=== PATIENT | female | born 1995 | race Two or more races ===

== ENCOUNTER 2017-09-10 13:59 | Inpatient (IN) | payer MEDICAID, OTHER ==
[~2017-09-10] VITALS: Ht 162.6 cm; Wt 78.9 kg
[2017-09-10] MEDS ORDERED: SODIUM CHLORIDE 0.9% 1,000ML IVBOLUS ONE (15:00)
[2017-09-10] MEDS ORDERED: SODIUM CHLORIDE FLUSH 10ML SYR IVF ONE (15:00)
[2017-09-10] MEDS ORDERED: ONDANSETRON 2MG/ML, 2ML IVPush ONE (15:00)
[2017-09-10 15:08] LABS: MEAN CORPUSCULAR HEMOGLOBIN 30.9 pg (27.0-34.8); MEAN CORPUSCULAR HGB CONC 33.8 g/dL (32.4-35.8); MEAN CORPUSCULAR VOLUME 91.4 fL (80-100); MEAN PLATELET VOLUME 9.6 fL (7.4-10.4); PLATELET COUNT 265 x10^3/uL (130-400); RED BLOOD COUNT 5.36 x10^6/uL (3.82-5.3); RED CELL DISTRIBUTION WIDTH 13.1 % (9.6-15.2)
[2017-09-10 15:19] LABS: ALBUMIN 3.9 g/dL (3.4-5.0); ANION GAP 14 mmol/L (5-15); CALCIUM 9.4 mg/dL (8.5-10.1); CHLORIDE 89 mmol/L (98-107)
[2017-09-10 15:40] LABS: ALANINE AMINOTRANSFERASE 264 U/L (12-78); ALKALINE PHOSPHATASE 135 U/L (45-117); BILIRUBIN,TOTAL 1.6 mg/dL (0.2-1.0); CREATININE 0.87 mg/dL (0.55-1.02); TOTAL PROTEIN 8.3 g/dL (6.4-8.2)
[2017-09-10] MEDS ORDERED: PYRI50TA5 PO (15:51)
[2017-09-10] MEDS ORDERED: PROM12.55 PO (15:51)
[2017-09-10] MEDS ORDERED: ONDA4TAB10 PO (15:51)
[2017-09-10] MEDS ORDERED: ONDANSETRON 2MG/ML, 2ML ONE ×2 (15:54→16:03)
[2017-09-10 15:55] LABS: BASOPHILS # (AUTO) 0.07 x10^3/uL (0-0.1); BASOPHILS % (AUTO) 0 % (0-1); EOSINOPHILS # (AUTO) 0.07 x10^3/uL (0-0.4); EOSINOPHILS % (AUTO) 0 % (1-7); LYMPHOCYTES # (AUTO) 2.08 x10^3/uL (1-3.4); LYMPHOCYTES % (AUTO) 11 % (22-44); MD SCAN; MONOCYTES # (AUTO) 1.55 x10^3/uL (0.2-0.8); MONOCYTES % (AUTO) 8 % (2-9); NEUTROPHILS # (AUTO) 14.94 x10^3/uL (1.8-6.8); NEUTROPHILS % (AUTO) 80 % (42-75)
[2017-09-10] MEDS ORDERED: POTASSIUM CHLORIDE 40 MEQ in SODIUM CHLORIDE 0.9% 500 ML IV ONE (17:00)
[2017-09-10 17:11] LABS: CULTURE INDICATED? YES; MICROSCOPIC INDICATED
[2017-09-10] MEDS ORDERED: NS + 40MEQ KCL 1,000 ML IV ONE (17:50)
[2017-09-10] MEDS ORDERED: POTASSIUM CHLORIDE 20 MEQ in SODIUM CHLORIDE 0.9% 1,000 ML IV ONE (18:22)
[2017-09-10] MEDS ORDERED: CEFTRIAXONE PMX 1GM/50ML 50 ML IV ONE (18:30)
[2017-09-10] MEDS ORDERED: SODIUM CHLORIDE FLUSH 10ML SYR IVF PRN (18:30)
[2017-09-10] MEDS ORDERED: CEFTRIAXONE PMX 1GM/50ML 50 ML ONE (18:40)
[2017-09-10] MEDS ORDERED: DIPHENHYDRAMINE 50 MG/ML, 1ML IV PRN (19:30)
[2017-09-10 19:45] VITALS: BP 123/83
[2017-09-10] MEDS ORDERED: DIPHENHYDRAMINE 50 MG/ML, 1ML IVPush PRN (20:00)
[2017-09-10] MEDS ORDERED: PROMETHAZINE 25 MG SUPP PR PRN (20:00)
[2017-09-10] MEDS: D5%-0.45NACL+KCL 20MEQ 1,000 ML IV SCH (21:09)
[2017-09-10 21:30] VITALS: BP 123/83
[2017-09-10] MEDS: ONDANSETRON 2MG/ML, 2ML IVPush PRN (23:16)
[2017-09-11 00:53] LABS: ANION GAP 9 mmol/L (5-15); CALCIUM 8.5 mg/dL (8.5-10.1); CHLORIDE 99 mmol/L (98-107); CREATININE 0.66 mg/dL (0.55-1.02)
[2017-09-11 01:24] VITALS: BP 120/87
[2017-09-11] MEDS ORDERED: POTASSIUM CHLORIDE 40 MEQ in SODIUM CHLORIDE 0.9% 500 ML IV ONE ×2 (02:00→18:00)
[2017-09-11] MEDS ORDERED: ACETAMINOPHEN 500 MG TABLET ONE (02:16)
[2017-09-11] MEDS: ACETAMINOPHEN 500 MG TABLET PO PRN ×3 (02:20→15:19)
[2017-09-11] MEDS: ONDANSETRON 2MG/ML, 2ML IVPush PRN ×3 (05:39→18:44)
[2017-09-11] MEDS: D5%-0.45NACL+KCL 20MEQ 1,000 ML IV SCH (06:11)
[2017-09-11 06:17] LABS: MEAN CORPUSCULAR HEMOGLOBIN 31.4 pg (27.0-34.8); MEAN CORPUSCULAR HGB CONC 34.6 g/dL (32.4-35.8); MEAN CORPUSCULAR VOLUME 90.8 fL (80-100); MEAN PLATELET VOLUME 9.8 fL (7.4-10.4); PLATELET COUNT 189 x10^3/uL (130-400); RED BLOOD COUNT 4.16 x10^6/uL (3.82-5.3); RED CELL DISTRIBUTION WIDTH 13.3 % (9.6-15.2)
[2017-09-11 06:29] LABS: CHLORIDE 100 mmol/L (98-107)
[2017-09-11 06:35] LABS: ALANINE AMINOTRANSFERASE 223 U/L (12-78); ALKALINE PHOSPHATASE 95 U/L (45-117); ANION GAP 10 mmol/L (5-15); BILIRUBIN,TOTAL 1.3 mg/dL (0.2-1.0); CALCIUM 8.4 mg/dL (8.5-10.1); CREATININE 0.54 mg/dL (0.55-1.02); TOTAL PROTEIN 6.2 g/dL (6.4-8.2)
[2017-09-11 06:39] LABS: BASOPHILS # (AUTO) 0.04 x10^3/uL (0-0.1); BASOPHILS % (AUTO) 0 % (0-1); EOSINOPHILS # (AUTO) 0.09 x10^3/uL (0-0.4); EOSINOPHILS % (AUTO) 1 % (1-7); LYMPHOCYTES # (AUTO) 2.55 x10^3/uL (1-3.4); LYMPHOCYTES % (AUTO) 21 % (22-44); MD SCAN; MONOCYTES # (AUTO) 1.51 x10^3/uL (0.2-0.8); MONOCYTES % (AUTO) 12 % (2-9); NEUTROPHILS # (AUTO) 8.18 x10^3/uL (1.8-6.8); NEUTROPHILS % (AUTO) 66 % (42-75)
[2017-09-11] MEDS ORDERED: PROMETHAZINE 25 MG SUPP PR SCH (08:00)
[2017-09-11] MEDS: D5%-0.9% NACL+KCL 20MEQ 1,000 ML IV SCH (08:08)
[2017-09-11] MEDS: PYRIDOXINE 50MG TABLET PO SCH (08:08)
[2017-09-11 08:13] VITALS: BP 113/72
[2017-09-11 12:55] VITALS: BP 106/71
[2017-09-11] MEDS: CEFTRIAXONE PMX 1GM/50ML 50 ML IV SCH (15:06)
[2017-09-11] MEDS: MECLIZINE 12.5 MG TABLET PO PRN (15:06)
[2017-09-11 18:25] LABS: AMPHETAMINE SCREEN, URINE Negative (Negative); BARBITURATE SCREEN, URINE Negative (Negative); BENZODIAZEPINE SCREEN, URINE Negative (Negative); CANNABINOID SCREEN, URINE Positive (Negative); COCAINE SCREEN, URINE Negative (Negative); METHADONE SCREEN, URINE Negative (Negative); OPIATE SCREEN, URINE Negative (Negative)
[2017-09-11 18:39] VITALS: BP 120/78
[2017-09-11] MEDS ORDERED: DOXYLAMINE 25MG TABLET PO SCH (21:00)
[2017-09-12] MEDS: MECLIZINE 12.5 MG TABLET PO PRN ×2 (00:27→10:42)
[2017-09-12] MEDS: ONDANSETRON 2MG/ML, 2ML IVPush PRN ×2 (01:36→08:23)
[2017-09-12] MEDS: D5%-0.9% NACL+KCL 20MEQ 1,000 ML IV SCH (04:18)
[2017-09-12 04:20] VITALS: BP 112/73
[2017-09-12 06:02] LABS: CHLORIDE 104 mmol/L (98-107)
[2017-09-12 06:07] LABS: ALANINE AMINOTRANSFERASE 207 U/L (12-78); ALKALINE PHOSPHATASE 90 U/L (45-117); ANION GAP 9 mmol/L (5-15); BILIRUBIN,TOTAL 0.9 mg/dL (0.2-1.0); CALCIUM 8.4 mg/dL (8.5-10.1); CREATININE 0.48 mg/dL (0.55-1.02); TOTAL PROTEIN 6.2 g/dL (6.4-8.2)
[2017-09-12 06:58] VITALS: BP 119/80
[2017-09-12] MEDS: PYRIDOXINE 50MG TABLET PO SCH (08:24)
[2017-09-12] MEDS ORDERED: PROMETHAZINE 25 MG/ML, 1ML IM ONE ×2 (11:30→21:00)
[2017-09-12] MEDS ORDERED: PROCHLORPERAZINE 5 MG TABLET PO PRN (11:30)
[2017-09-12] MEDS ORDERED: PROMETHAZINE 25 MG SUPP PR ONE (11:30)
[2017-09-12 13:05] VITALS: BP 119/74
[2017-09-12] MEDS ORDERED: SIMETHICONE DROPS 40 MG/0.6 ML BOTTLE PO PRN (14:00)
[2017-09-12] MEDS ORDERED: METOCLOPRAMIDE 5 MG/ML, 2ML IVPush SCH (14:30)
[2017-09-12] MEDS: CEFTRIAXONE PMX 1GM/50ML 50 ML IV SCH (15:26)
[2017-09-12] MEDS ORDERED: ONDANSETRON 2MG/ML, 2ML IVPush PRN (19:30)
[2017-09-12] MEDS: ONDANSETRON IV SCH (20:32)
[2017-09-12] MEDS: DEXTROSE 5% IV SCH (20:32)
[2017-09-12] MEDS: FAMOTIDINE 20 MG/2 ML IVPush SCH (20:32)
[2017-09-12 20:47] VITALS: BP 119/72
[2017-09-12] MEDS ORDERED: DOCUSATE 50 MG/5 ML, 10ML UDC PO SCH (21:00)
[2017-09-12] MEDS: D5%-LR+KCL 20MEQ 1,000 ML IV SCH (22:48)
[2017-09-13 02:30] VITALS: BP 122/84
[2017-09-13] MEDS: PROMETHAZINE 25 MG/ML, 1ML IM PRN ×3 (02:41→21:36)
[2017-09-13] MEDS ORDERED: D5%-0.9% NACL+KCL 20MEQ 1,000 ML IV SCH (06:30)
[2017-09-13] MEDS: D5%-LR+KCL 20MEQ 1,000 ML IV SCH ×2 (07:19→18:27)
[2017-09-13 07:52] VITALS: BP 116/74
[2017-09-13 07:52] LABS: ANION GAP 9 mmol/L (5-15); CALCIUM 8.3 mg/dL (8.5-10.1); CHLORIDE 106 mmol/L (98-107)
[2017-09-13 08:07] LABS: ALANINE AMINOTRANSFERASE 225 U/L (12-78); ALKALINE PHOSPHATASE 94 U/L (45-117); BILIRUBIN,TOTAL 0.7 mg/dL (0.2-1.0); CREATININE 0.48 mg/dL (0.55-1.02); TOTAL PROTEIN 6.1 g/dL (6.4-8.2)
[2017-09-13] MEDS: FAMOTIDINE 20 MG/2 ML IVPush SCH ×2 (08:22→21:36)
[2017-09-13 13:04] VITALS: BP 107/69
[2017-09-13] MEDS: CEFTRIAXONE PMX 1GM/50ML 50 ML IV SCH (16:13)
[2017-09-13] MEDS: ONDANSETRON IV SCH (20:06)
[2017-09-13] MEDS: DEXTROSE 5% IV SCH (20:06)
[2017-09-13 20:47] VITALS: BP 102/58
[2017-09-14 00:44] VITALS: BP 107/70
[2017-09-14] MEDS: PROMETHAZINE 25 MG/ML, 1ML IM PRN (01:49)
[2017-09-14] MEDS: D5%-LR+KCL 20MEQ 1,000 ML IV SCH ×3 (02:18→19:57)
[2017-09-14] MEDS: PROMETHAZINE 25 MG/ML, 1ML IM SCH ×5 (06:26→22:36)
[2017-09-14 07:01] VITALS: BP 109/76
[2017-09-14] MEDS: FAMOTIDINE 20 MG/2 ML IVPush SCH ×2 (08:51→21:06)
[2017-09-14 13:56] VITALS: BP 122/78
[2017-09-14] MEDS ORDERED: CEFTRIAXONE PMX 1GM/50ML 50 ML IV SCH (14:00)
[2017-09-14] MEDS ORDERED: PROMETHAZINE 25 MG/ML, 1ML ONE (14:56)
[2017-09-14] MEDS: ONDANSETRON IV SCH (19:57)
[2017-09-14] MEDS: DEXTROSE 5% IV SCH (19:57)
[2017-09-14 20:02] VITALS: BP 125/84
[2017-09-15] MEDS: D5%-LR+KCL 20MEQ 1,000 ML IV SCH ×4 (02:26→22:43)
[2017-09-15] MEDS: PROMETHAZINE 25 MG/ML, 1ML IM SCH ×5 (02:27→20:32)
[2017-09-15 02:30] VITALS: BP 127/85
[2017-09-15 03:10] LABS: BASOPHILS # (AUTO) 0.04 x10^3/uL (0-0.1); BASOPHILS % (AUTO) 0 % (0-1); EOSINOPHILS # (AUTO) 0.14 x10^3/uL (0-0.4); EOSINOPHILS % (AUTO) 1 % (1-7); LYMPHOCYTES # (AUTO) 2.08 x10^3/uL (1-3.4); LYMPHOCYTES % (AUTO) 19 % (22-44); MD NO; MEAN CORPUSCULAR HEMOGLOBIN 31.2 pg (27.0-34.8); MEAN CORPUSCULAR HGB CONC 33.7 g/dL (32.4-35.8); MEAN CORPUSCULAR VOLUME 92.4 fL (80-100); MEAN PLATELET VOLUME 9.6 fL (7.4-10.4); MONOCYTES # (AUTO) 1.01 x10^3/uL (0.2-0.8); MONOCYTES % (AUTO) 9 % (2-9); NEUTROPHILS # (AUTO) 7.66 x10^3/uL (1.8-6.8); NEUTROPHILS % (AUTO) 70 % (42-75); PLATELET COUNT 175 x10^3/uL (130-400); RED BLOOD COUNT 4.04 x10^6/uL (3.82-5.3); RED CELL DISTRIBUTION WIDTH 13.5 % (9.6-15.2)
[2017-09-15 03:21] LABS: ANION GAP 7 mmol/L (5-15); CALCIUM 8.7 mg/dL (8.5-10.1); CHLORIDE 105 mmol/L (98-107)
[2017-09-15 03:25] LABS: ALANINE AMINOTRANSFERASE 247 U/L (12-78); ALKALINE PHOSPHATASE 94 U/L (45-117); BILIRUBIN,TOTAL 0.8 mg/dL (0.2-1.0); CREATININE 0.52 mg/dL (0.55-1.02); TOTAL PROTEIN 6.5 g/dL (6.4-8.2)
[2017-09-15] MEDS ORDERED: CATHFLO-ALTEPLASE 2 MG/2 ML CATHFLUSH ONE (03:30)
[2017-09-15 08:34] VITALS: BP 131/86
[2017-09-15] MEDS: FAMOTIDINE 20 MG/2 ML IVPush SCH ×2 (09:05→20:32)
[2017-09-15 14:18] VITALS: BP 112/72
[2017-09-15 19:06] VITALS: BP 116/77
[2017-09-15] MEDS: DEXTROSE 5% IV SCH (22:44)
[2017-09-15] MEDS: ONDANSETRON IV SCH (22:44)
[2017-09-16 01:07] VITALS: BP 130/79
[2017-09-16] MEDS: PROMETHAZINE 25 MG/ML, 1ML IM SCH ×6 (01:22→21:31)
[2017-09-16] MEDS: D5%-LR+KCL 20MEQ 1,000 ML IV SCH ×2 (04:29→10:10)
[2017-09-16] MEDS ORDERED: TPN PER PHARMACY MC PRN (07:00)
[2017-09-16 08:35] VITALS: BP 111/76
[2017-09-16] MEDS: FAMOTIDINE 20 MG/2 ML IVPush SCH ×2 (09:08→21:31)
[2017-09-16 13:04] VITALS: BP 113/78
[2017-09-16 14:28] LABS: ANION GAP 9 mmol/L (5-15); CALCIUM 8.9 mg/dL (8.5-10.1); CHLORIDE 103 mmol/L (98-107)
[2017-09-16 14:32] LABS: CREATININE 0.48 mg/dL (0.55-1.02)
[2017-09-16] MEDS ORDERED: FILTER, DISP 1.2 MICRON FOR TPN/PVN IV PRN (15:30)
[2017-09-16] MEDS ORDERED: D5%-LACTATED RINGERS 1,000 ML IV SCH ×2 (16:00→17:00)
[2017-09-16] MEDS ORDERED: DEXTROSE 70% IV SCH (17:00)
[2017-09-16] MEDS ORDERED: DEXTROSE 10% 500 ML IV PRN (17:00)
[2017-09-16] MEDS ORDERED: [UNRECOGNIZED DRUG - OTHER] IV SCH (17:00)
[2017-09-16] MEDS ORDERED: FAT EMULSIONS IV SCH (17:00)
[2017-09-16] MEDS ORDERED: AMINO ACID 10% IV SCH (17:00)
[2017-09-16] MEDS ORDERED: DEXTROSE 50%, 50ML SYRINGE IVPush PRN (17:00)
[2017-09-16 19:23] VITALS: BP 115/78
[2017-09-16] MEDS ORDERED: D5%-LR+KCL 20MEQ 1,000 ML IV SCH (19:30)
[2017-09-16] MEDS ORDERED: INSULIN REGULAR LOW DOSE Q6H X 48HRS SQ-INSULIN SCH (21:00)
[2017-09-16] MEDS: INSULIN REGULAR LOW DOSE QDAY SQ-INSULIN SCH (21:00)
[2017-09-16] MEDS: DEXTROSE 5% IV SCH (22:54)
[2017-09-16] MEDS: ONDANSETRON IV SCH (22:54)
[2017-09-17] MEDS: PROMETHAZINE 25 MG/ML, 1ML IM SCH ×2 (01:00→05:00)
[2017-09-17 02:23] VITALS: BP 113/73
[2017-09-17 05:32] LABS: ANION GAP 8 mmol/L (5-15); CALCIUM 8.9 mg/dL (8.5-10.1); CHLORIDE 105 mmol/L (98-107); CREATININE 0.49 mg/dL (0.55-1.02)
[2017-09-17 05:33] LABS: ALANINE AMINOTRANSFERASE 240 U/L (12-78)
[2017-09-17 05:43] LABS: ALKALINE PHOSPHATASE 109 U/L (45-117); BILIRUBIN,TOTAL 0.8 mg/dL (0.2-1.0); PREALBUMIN 17.1 mg/dL (20.0-40.0); TOTAL PROTEIN 6.9 g/dL (6.4-8.2); TRIGLYCERIDES 120 mg/dL (50-200)
[2017-09-17 07:43] VITALS: BP 107/76
[2017-09-17] MEDS ORDERED: FAMOTIDINE 20 MG/2 ML IVPush SCH (08:20)
[2017-09-17] MEDS: HYDROCORTISONE 100 MG INJ. IV SCH ×2 (09:15→17:05)
[2017-09-17] MEDS: SODIUM CHLORIDE 0.9% 1,000 ML IV SCH (09:15)
[2017-09-17] MEDS ORDERED: PROMETHAZINE 25 MG/ML, 1ML IM PRN (10:30)
[2017-09-17] MEDS: PYRIDOXINE 25MG TABLET PO SCH ×3 (11:00→21:00)
[2017-09-17 13:15] VITALS: BP 124/88
[2017-09-17] MEDS ORDERED: [UNRECOGNIZED DRUG - OTHER] IV SCH (17:00)
[2017-09-17] MEDS ORDERED: FAT EMULSIONS IV SCH ×2 (17:00)
[2017-09-17] MEDS ORDERED: DEXTROSE 70% IV SCH ×2 (17:00)
[2017-09-17] MEDS ORDERED: AMINO ACID 10% IV SCH ×2 (17:00)
[2017-09-17] MEDS ORDERED: [UNRECOGNIZED DRUG - OTHER] IV SCH (17:00)
[2017-09-17 19:28] VITALS: BP 122/78
[2017-09-17] MEDS: INSULIN REGULAR LOW DOSE QDAY SQ-INSULIN SCH (21:00)
[2017-09-17] MEDS: ONDANSETRON IV SCH (21:24)
[2017-09-17] MEDS: DEXTROSE 5% IV SCH (21:24)
[2017-09-18] MEDS: HYDROCORTISONE 100 MG INJ. IV SCH ×3 (01:21→20:25)
[2017-09-18 02:15] VITALS: BP 112/75
[2017-09-18 04:54] LABS: CHLORIDE 106 mmol/L (98-107)
[2017-09-18 05:02] LABS: ANION GAP 10 mmol/L (5-15); CALCIUM 8.4 mg/dL (8.5-10.1); CREATININE 0.46 mg/dL (0.55-1.02)
[2017-09-18] MEDS: SODIUM CHLORIDE 0.9% 1,000 ML IV SCH (05:21)
[2017-09-18] MEDS: PYRIDOXINE 50MG TABLET PO SCH ×4 (06:02→20:25)
[2017-09-18 06:23] LABS: MICROSCOPIC NOT IND
[2017-09-18 06:30] LABS: CULTURE INDICATED? NO
[2017-09-18 07:14] VITALS: BP 113/71
[2017-09-18 13:19] VITALS: BP 108/70
[2017-09-18] MEDS: FILTER, DISP 1.2 MICRON FOR TPN/PVN IV PRN (15:55)
[2017-09-18] MEDS ORDERED: FAT EMULSIONS IV SCH (17:00)
[2017-09-18] MEDS ORDERED: AMINO ACID 10% IV SCH (17:00)
[2017-09-18] MEDS ORDERED: DEXTROSE 70% IV SCH (17:00)
[2017-09-18] MEDS ORDERED: [UNRECOGNIZED DRUG - OTHER] IV SCH (17:00)
[2017-09-18 19:13] VITALS: BP 111/72
[2017-09-18] MEDS: DEXTROSE 5% IV SCH (22:14)
[2017-09-18] MEDS: ONDANSETRON IV SCH (22:14)
[2017-09-19 00:54] VITALS: BP 108/69
[2017-09-19] MEDS: HYDROCORTISONE 100 MG INJ. IV SCH (04:56)
[2017-09-19] MEDS: PYRIDOXINE 50MG TABLET PO SCH ×4 (04:56→20:45)
[2017-09-19 05:31] LABS: CHLORIDE 110 mmol/L (98-107)
[2017-09-19 05:32] LABS: ANION GAP 8 mmol/L (5-15); CALCIUM 8.2 mg/dL (8.5-10.1); CREATININE 0.41 mg/dL (0.55-1.02)
[2017-09-19] MEDS: INSULIN REGULAR LOW DOSE QDAY SQ-INSULIN SCH (07:20)
[2017-09-19 08:44] VITALS: BP 114/73
[2017-09-19] MEDS: prednisOLONE 15 MG/5 ML ORAL SOLN PO SCH ×2 (11:33→16:29)
[2017-09-19 12:40] VITALS: BP 117/70
[2017-09-19] MEDS ORDERED: AMINO ACID 10% IV SCH (17:00)
[2017-09-19] MEDS ORDERED: [UNRECOGNIZED DRUG - OTHER] IV SCH (17:00)
[2017-09-19] MEDS ORDERED: DEXTROSE 70% IV SCH (17:00)
[2017-09-19] MEDS ORDERED: FAT EMULSIONS IV SCH (17:00)
[2017-09-19] MEDS: FILTER, DISP 1.2 MICRON FOR TPN/PVN IV PRN (18:20)
[2017-09-19 19:27] VITALS: BP 113/74
[2017-09-19] MEDS ORDERED: DEXTROSE 5% IV SCH (20:00)
[2017-09-19] MEDS ORDERED: ONDANSETRON IV SCH (20:00)
[2017-09-20 01:13] VITALS: BP 113/73
[2017-09-20] MEDS: PYRIDOXINE 50MG TABLET PO SCH ×4 (05:27→20:44)
[2017-09-20 06:17] LABS: ANION GAP 6 mmol/L (5-15); CALCIUM 8.5 mg/dL (8.5-10.1); CHLORIDE 108 mmol/L (98-107)
[2017-09-20 08:00] VITALS: BP 111/76
[2017-09-20] MEDS: INSULIN REGULAR LOW DOSE QDAY SQ-INSULIN SCH (08:39)
[2017-09-20] MEDS: prednisOLONE 15 MG/5 ML ORAL SOLN PO SCH ×3 (08:39→17:16)
[2017-09-20] MEDS ORDERED: ONDANSETRON ODT 4 MG PO PRN (09:00)
[2017-09-20 12:56] VITALS: BP 113/71
[2017-09-20] MEDS ORDERED: PYRI50TA5 PO (13:28)
[2017-09-20] MEDS ORDERED: PRED15SO3 PO (13:28)
[2017-09-20] MEDS ORDERED: FAT EMULSIONS IV SCH (17:00)
[2017-09-20] MEDS ORDERED: AMINO ACID 10% IV SCH (17:00)
[2017-09-20] MEDS ORDERED: [UNRECOGNIZED DRUG - OTHER] IV SCH (17:00)
[2017-09-20] MEDS ORDERED: DEXTROSE 70% IV SCH (17:00)
[2017-09-20 20:31] VITALS: BP 119/76
== END 2017-09-20 22:20 | disposition home or self-care (01) | DRG 781 ==
LOC: ED 17:38 → EDIP 19:22 → 3NE 20:00
PROVIDERS: ADMIT Family Medicine; ATTEND Family Medicine
PROC: 02HV33Z Insertion of Infusion Device into Superior Vena Cava, Percutaneous Approach (ICD-10-PCS; 2017-09-13)
PROC: B5181ZA Fluoroscopy of Superior Vena Cava using Low Osmolar Contrast, Guidance (ICD-10-PCS; 2017-09-13)
PROC: 3E0436Z Introduction of Nutritional Substance into Central Vein, Percutaneous Approach (ICD-10-PCS; principal; 2017-09-16)
DX: O21.1 Hyperemesis gravidarum with metabolic disturbance (principal); F19.20 Other psychoactive substance dependence, uncomplicated; O23.11 Infections of bladder in pregnancy, first trimester; O99.321 Drug use complicating pregnancy, first trimester; E86.0 Dehydration; F17.200 Nicotine dependence, unspecified, uncomplicated; F41.9 Anxiety disorder, unspecified; N83.201 Unspecified ovarian cyst, right side; O34.81 Maternal care for other abnormalities of pelvic organs, first trimester; O46.91 Antepartum hemorrhage, unspecified, first trimester; O99.331 Smoking (tobacco) complicating pregnancy, first trimester; O99.341 Other mental disorders complicating pregnancy, first trimester; Z3A.08 8 weeks gestation of pregnancy; O99.281 Endocrine, nutritional and metabolic diseases complicating pregnancy, first trimester; Z88.8 Allergy status to other drugs, medicaments and biological substances
CPT/HCPCS: 36415; 36569; 76801; 76937; 77001; 80048; 80053; 80307; 81001; 81003; 82962; 83690; 83735; 84100; 84134; 84478; 84702; 85025; 87086; 93005; 96361; 96365; 96375; J0610; J0696; J2405; J2550; J2997; J3475; J3480; C1751; J1200; J1720; J7030; J7040; J7510; Q0164; S0028